=== PATIENT | female | born 1995 | race American Indian/Alaskan Native ===

== ENCOUNTER 2018-07-25 02:50 | Emergency (ER) | payer MEDICAID ==
[2018-07-25 03:22] VITALS: BMI 53.4
[2018-07-25 03:48] LABS: SQUAMOUS EPITHIAL 44 /hpf (0-5); URINE BACTERIA OCC (<OCC); URINE BILIRUBIN NEGATIVE (NEGATIVE); URINE BLOOD 2+ (NEGATIVE); URINE CLARITY Hazy (Clear); URINE COLOR Amber (YELLOW); URINE GLUCOSE (UA) NORMAL (Normal); URINE LEUKOCYTE ESTERASE 3+ Leu/uL (Negative); URINE PROTEIN 2+ mg/dL (NEGATIVE)
--- NOTE | 2018-07-25 04:23 | OBHP ---
Datetime: 07/25/2018 04:18 IP Adm Impression: , intrauterine IP Admit Plan: Discharge home Admit Comment, IP Provider: at 28+weks morbidily obese came with c/o pain courtney the abdomen 2-3 h rs ago, no ctxs, vb , lof?+fm. obhx 1 x pmh asthma med pnv all nkda latex psh de ve closed ua 3+le a/p at 28+weeks uti ivf uc macrobid x 7 days po hy f/u in clinic Pelvic Type - PN: Adequate Extremities - PN: Normal Abdomen - PN: Normal Back - PN: Normal Breast - PN: Normal Lungs - PN: Normal Heart - PN: Normal Thyroid - PN: Normal Neurologic - PN: Normal HEENT - PN: Normal General - PN: Normal FHR - Baseline A Provider: 130 Contraction Comments Provider: none EGA AdmitDate IP: 28.4 Vital Signs Provider: Reviewed; Within Normal Limits IP Chief Complaint: Maternal discomfort NICHD Variability Prov Fetus A: Moderate 6-25bpm Dilatation, Provider: 0 Effacement, Provider: 0 Station, Provider: -3 Genitourinary Exam: Normal DTRs - PN: Normal
--- NOTE | 2018-07-25 04:23 | OBDCSUM ---
Datetime: 07/25/2018 04:21 Discharged to, Provider: Home Follow up at, Provider: as sculed Follow up in weeks, Provider: clinic Discharge Comment, Provider: uc macrobid x 7 days po hy f/u in clinic Discharge Diagnosis Prov Other: 28+wee ui
[2018-07-25 11:24] VITALS: BP 127/66; PULSE 83; RESP 18
== END 2018-07-25 06:50 | disposition home or self-care (01) ==
LOC: C.EROB 02:50
DX: O23.43 Unspecified infection of urinary tract in pregnancy, third trimester (principal); Z3A.28 28 weeks gestation of pregnancy

== ENCOUNTER 2018-09-17 22:50 | Emergency (ER) | payer MEDICAID ==
[2018-09-17 23:41] VITALS: BMI 52.9
[2018-09-17] MEDS ORDERED: Lactated Ringer's 1,000 ML IV SCH (23:45)
[2018-09-18 00:15] LABS: BASO # 0.1 K/uL (0.0-0.2); BASO % 0.8 % (0.0-2.0); EOS # 0.1 K/uL (0.0-0.7); EOS % 1.7 % (0.0-4.0); HEMOGLOBIN 10.5 g/dL (11.0-16.0); LYMPH # 1.7 K/uL (1.0-4.3); LYMPH % 22.5 % (20.0-40.0); MEAN CELL VOLUME 92.8 fL (81.0-99.0); MEAN CORPUSCULAR HGB CONC 34.5 g/dL (33.0-37.0); MEAN PLATELET VOLUME 9.7 fL (7.2-11.7); MONO # 0.7 K/uL (0.0-0.8); MONO % 9.3 % (0.0-10.0); NEUT # 4.9 K/uL (1.8-7.0); NEUT % 65.7 % (50.0-75.0); NRBC % 0.1 % (0.0-2.0); RBC 3.29 Mil/uL (3.80-5.20); RED CELL DISTRIBUTION WIDTH 12.6 % (11.5-14.5); WHITE BLOOD COUNT 7.4 K/uL (4.8-10.8)
[2018-09-18 00:21] LABS: SQUAMOUS EPITHIAL 14 /hpf (0-5); URINE BACTERIA OCC (<OCC); URINE BILIRUBIN NEGATIVE (NEGATIVE); URINE BLOOD 2+ (NEGATIVE); URINE CALCIUM OXALATE CRYSTALS FEW /hpf (<OCC); URINE CLARITY Hazy (Clear); URINE COLOR Amber (YELLOW); URINE GLUCOSE (UA) NORMAL (Normal); URINE LEUKOCYTE ESTERASE 3+ Leu/uL (Negative); URINE PROTEIN 2+ mg/dL (NEGATIVE)
[2018-09-18 00:24] LABS: PROTHROMBIN TIME 11.4 SECONDS (9.7-12.2)
[2018-09-18 00:28] LABS: ALB/GLOB RATIO 1.2 (1.0-2.1); ALBUMIN 3.4 g/dL (3.5-5.0); ALT/SGPT 19 U/L (9-52); AST/SGOT 17 U/L (14-36); BLOOD UREA NITROGEN 8 mg/dL (7-17); CALCIUM 8.8 mg/dl (8.6-10.4); GFR NON-AFRICAN AMERICAN > 60
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
[2018-09-18 07:39] LABS: BASO # 0.1 K/uL (0.0-0.2); BASO % 0.8 % (0.0-2.0); EOS # 0.2 K/uL (0.0-0.7); EOS % 2.1 % (0.0-4.0); LYMPH # 1.8 K/uL (1.0-4.3); LYMPH % 23.7 % (20.0-40.0); MEAN CELL VOLUME 93.3 fL (81.0-99.0); MEAN CORPUSCULAR HEMOGLOBIN 32.3 pg (27.0-31.0); MEAN CORPUSCULAR HGB CONC 34.6 g/dL (33.0-37.0); MEAN PLATELET VOLUME 9.6 fL (7.2-11.7); MONO # 0.7 K/uL (0.0-0.8); MONO % 8.8 % (0.0-10.0); NEUT # 4.9 K/uL (1.8-7.0); NEUT % 64.6 % (50.0-75.0); RBC 3.09 Mil/uL (3.80-5.20); RED CELL DISTRIBUTION WIDTH 12.7 % (11.5-14.5); WHITE BLOOD COUNT 7.5 K/uL (4.8-10.8)
--- NOTE | 2018-09-18 10:18 | US ---
Date of service: 09/18/2018 PROCEDURE: Obstetrical ultrasound examination and limited biophysical profile HISTORY: s/p abdominal trauma, 36w 2d; morbidky obese COMPARISON: Not available TECHNIQUE: Transabdominal FINDINGS: The examination demonstrates a single live intrauterine gestation in cephalic presentation. The heart rate is 144 beats per minute. A grossly normal quantity of amniotic fluid is visualized. The amniotic fluid index is 14.84 cm. The cervix is closed and measures 3.2 cm in length. A normal anterior fundal placenta is identified. There is no evidence of placenta previa. biometry yields a gestational age of 36 weeks 4 days. The JAYDEN by ultrasound is 10/12/2018. The EFW is 2964 g. anatomy was not evaluated at this time due to the late stage of gestation. Limited biophysical profile examination yields a score of 8 out of 8. IMPRESSION: Single live intrauterine gestation of approximately 36 weeks 4 days. anatomy not evaluated. Normal amniotic fluid volume. heart rate 144. Cervix long and closed. No placenta previa. Biophysical profile score 8 out of 8. The preliminary findings for this examination were reported by [facility] at 4:13 a.m. on 09/18/2018. There is concurrence of this report with the preliminary findings.
[2018-09-18 10:31] LABS: SQUAMOUS EPITHIAL < 1 /hpf (0-5); URINE BILIRUBIN NEGATIVE (NEGATIVE); URINE BLOOD 1+ (NEGATIVE); URINE CALCIUM OXALATE CRYSTALS OCC /hpf (<OCC); URINE CLARITY Clear (Clear); URINE COLOR Yellow (YELLOW); URINE GLUCOSE (UA) NORMAL (Normal); URINE PROTEIN NEGATIVE (NEGATIVE); URINE UROBILINOGEN NORMAL mg/dL (0.2-1.0)
[2018-09-18 10:40] LABS: URINE LEUKOCYTE ESTERASE 1+ Leu/uL (Negative)
[2018-09-18] MEDS ORDERED: Lactated Ringer's 1,000 ML IV SCH (13:00)
--- NOTE | 2018-09-18 13:39 | OBDCSUM ---
Datetime: 09/18/2018 12:57 Discharged to, Provider: Home Follow up at, Provider: Maikel Disch Instr Activity: Normal activity; May be up to bathroom; May be up for meals; May Shower Disch Instr Diet: Regular Discharge Instructions, Provider: Routine instructions given Discharge Time: 09/18/2018 13:03 Follow up in weeks, Provider: today with clinic Disch Referrals: None Disch Activity Restrictions: No exercising; No lifting; Minimize stair-climbing; No sexual activity; Nothing in vagina - [place], tampons, douche Discharge Comment, Provider: 23 yo female with an IUP at 36.3 weeks Presented after a fall with direct trauma to abdomen No contractions, No LOF or VB Low Pelvic pain controlled with Motrin OB US WNL/NST Reactive/ Labs WNL UA initially with possible UTI and started on Antibiotic, Cath specimen Negative except for modera te dehydration and admits to deinking very little water. IVH given Stable and Satisfactory condition and recovery D/C home with instructions to increase po water intake, f/up with her OB and return if pain worsen s, VB, LOF or decrease FM Labor precautions reviewed with patient and verbalized understanding. Discharge Diagnosis Prov Other: S/P Abdominal Trauma Pelvic Pain Morbid Obesity
[2018-09-18 17:48] VITALS: BP 112/68; PULSE 99; RESP 20; TEMP 97.1; O2SAT 98
== END 2018-09-18 13:05 | disposition home or self-care (01) ==
LOC: C.EROB 22:50
DX: O26.93 Pregnancy related conditions, unspecified, third trimester (principal); Z3A.36 36 weeks gestation of pregnancy; W01.0XXA Fall on same level from slipping, tripping and stumbling without subsequent striking against object, initial encounter; Y92.9 Unspecified place or not applicable
CPT/HCPCS: 76815; 76818; 80053; 81001; 85025; 85384; 85610; 85730; 99283; J7120

== ENCOUNTER 2018-09-18 22:30 | Emergency (ER) | payer MEDICAID ==
[2018-09-18 23:21] VITALS: BMI 53.4
[2018-09-19] MEDS ORDERED: Lactated Ringer's 1,000 ML IV ONE (00:13)
[2018-09-19 00:36] LABS: HEMOGLOBIN 10.1 g/dL (11.0-16.0); MEAN CELL VOLUME 93.5 fL (81.0-99.0); MEAN CORPUSCULAR HGB CONC 34.3 g/dL (33.0-37.0); MEAN PLATELET VOLUME 10.1 fL (7.2-11.7); RBC 3.16 Mil/uL (3.80-5.20); RED CELL DISTRIBUTION WIDTH 12.8 % (11.5-14.5); WHITE BLOOD COUNT 7.3 K/uL (4.8-10.8)
[2018-09-19 00:57] LABS: SQUAMOUS EPITHIAL 4 /hpf (0-5); URINE BACTERIA RARE (<OCC); URINE BILIRUBIN NEGATIVE (NEGATIVE); URINE BLOOD 3+ (NEGATIVE); URINE CLARITY Hazy (Clear); URINE COLOR Yellow (YELLOW); URINE GLUCOSE (UA) NORMAL (Normal); URINE LEUKOCYTE ESTERASE 3+ Leu/uL (Negative); URINE PROTEIN 1+ mg/dL (NEGATIVE); URINE UROBILINOGEN NORMAL mg/dL (0.2-1.0)
[2018-09-19 01:02] LABS: INR 1.1; PROTHROMBIN TIME 11.6 SECONDS (9.7-12.2)
[2018-09-19 01:20] LABS: ALB/GLOB RATIO 1.2 (1.0-2.1); ALBUMIN 3.3 g/dL (3.5-5.0); ALT/SGPT 22 U/L (9-52); AST/SGOT 16 U/L (14-36); BLOOD UREA NITROGEN 6 mg/dL (7-17); GFR NON-AFRICAN AMERICAN > 60
[2018-09-19] MEDS ORDERED: Oxycodone/Acetaminophen 5/325 mg Tab PO PRN (02:02)
--- NOTE | 2018-09-19 03:14 | OBHP ---
Datetime: 09/18/2018 23:30 IP Adm Impression: , intrauterine ; No Active Labor; Intact Membranes IP Admit Plan: Observation/Evaluation Admit Comment, IP Provider: 23 yo female with an IUP at 36.4 weeks and returns to [facility] a fter she was discharged home about 12 hours ago after assessed for falling with direct trauma to her belly. This time pain c/o's of "vaginal bleeding" and brought a picture of a bloos clot of about 3-4 cms in her bed, while resting. Denied any active bleeding at time of presentation but few spots of bl ood. Also c/o of Suprapubic pain 06/21 and did not fill the prescription given earlier for Motrin. Req uesting stronger pain medication. P OB: , 2013, male, 7lb 10oz, [facility]); no complications. 2016, VTOP, 4-6 wks, office aspiration ; no complications. 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 Denies H/O STI, abnormal Pap, myomata, ovarian cysts. PMH: morbid obesity PSH: D_C NKDA Latex allergy Meds: Not taking PNV consistently. last took 1 week go. Soc Hx: denies tobacco, illicit drug or EtOH use. 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 fam Hx: Mother alive 46 y.o. HTN. Father alive 47 y.o. - unk. P.E.: morbidly obese, in NAD. Awake, alert, oriented to time, person and place. Pleasant and coope rative A/P: 36.4 weeks morbidly Obese female with c/o of vaginal bleeding and suprapubic pain ( did n ot fill her prescription for Motrin) and returning about 12 hours after she was discharged home after been evaluated for S/P fall with direct trauma to abdomen. No blood noted on vaginal exam at all and pt witnessed examining glove. CBC, CMP, UA sent NST Reactive. No uterine activity noted and VSS tachycardia on admission and probable due to maternal dehydration since she drinks little to no water and despite adequate counseling done on prior discharge home IVF Hydration ordered Continue close monitoring of FHT's and Uterine activity and proceed accordingly Pelvic Type - PN: Adequate Extremities - PN: Normal Abdomen - PN: Normal Back - PN: Normal Breast - PN: Not Done Lungs - PN: Normal Heart - PN: Normal Thyroid - PN: Normal Neurologic - PN: Normal HEENT - PN: Normal General - PN: Normal Presentation-Admit: Vertex FHR - Baseline A Provider: 170 Membranes, Provider: Intact Comments, ACOG Physical Exam: Morbid Obesity SVE closed, long, -3 and no signs of vaginal bleeding noted Gestation - Est Wks by US: 36.4 EGA AdmitDate IP: 36.3 Vital Signs Provider: Reviewed; Within Normal Limits IP Chief Complaint: Vaginal bleeding; Signs/symptoms UTI; Maternal discomfort; evaluation NICHD Variability Prov Fetus A: Moderate 6-25bpm NICHD Accel Fetus A IP Provider: 10X10 NICHD Decel Fetus A IP Provider: None Genitourinary Exam: Normal DTRs - PN: Normal
--- NOTE | 2018-09-19 03:32 | OBDCSUM ---
Datetime: 09/19/2018 03:12 Discharged to, Provider: Home Follow up at, Provider: Clinic Disch Instr Activity: Normal activity Disch Instr Diet: Regular Discharge Instructions, Provider: Routine instructions given Discharge Time: 09/19/2018 04:30 Follow up in weeks, Provider: 5-7 days Disch Activity Restrictions: No exercising; No lifting; Minimize stair-climbing; No sexual activity; Nothing in vagina - [place], tampons, douche Discharge Comment, Provider: 23 yo female with an IUP at 36.4 weeks and returns to [facility] after she was discharged home about 12 hours ago after assessed for falling with direct trauma to her belly. This time pain c/o's of "vaginal bleeding" and brought a picture of a bloos clot of about 3-4 cms in her bed, while resting. Denied any active bleeding at time of presentation but few spots of b lood. Also c/o of Suprapubic pain 06/21 and did not fill the prescription given earlier for Motrin. Re questing stronger pain medication. P OB: , 2013, male, 7lb 10oz, [facility]); no complications. 2016, VTOP, 4-6 wks, office aspiration ; no complications. 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 Denies H/O STI, abnormal Pap, myomata, ovarian cysts. PMH: morbid obesity PSH: D_C NKDA Latex allergy Meds: Not taking PNV consistently. last took 1 week go. Soc Hx: denies tobacco, illicit drug or EtOH use. 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 fam Hx: Mother alive 46 y.o. HTN. Father alive 47 y.o. - unk. P.E.: morbidly obese, in NAD. Awake, alert, oriented to time, person and place. Pleasant and coope rative A/P: 36.4 weeks morbidly Obese female with c/o of vaginal bleeding and suprapubic pain ( did n ot fill her prescription for Motrin) and returning about 12 hours after she was discharged home after been evaluated for S/P fall with direct trauma to abdomen. No blood noted on vaginal exam at all and pt witnessed examining glove. CBC, CMP WNL and only mild Anemia NST Reactive. No uterine activity noted and VSS tachycardia on admission and ressolved after IVF Hydration. UA with sigificant Hematuria and probable UTI 3 grams of Ancef given. 2 Percocet for pain also given and pain significantly improved + yeast infection detected in urine and diflucan given x 1 Stable and Satisfactory condition Will discharge home in 2-3 hours after Percocet, with instructions and Rx for Keflex 500 g po QID x 7 days and Diflucan 150 mg po in 3 and in 7 days. Advised again to increase po water intake and to fill Rx for Motrin to help with pain for 1-2 more days. Will f/up with her OB in 5-7 days or prn Discharge Diagnosis Prov Other: UTI with significant Hematuria Suprapubic pain Morbid Obesity Yeast infection Contraception after Delivery: Undecided Datetime: 09/18/2018 12:57 Discharge Comment, Provider: 23 yo female with an IUP at 36.3 weeks Presented after a fall with direct trauma to abdomen No contractions, No LOF or VB Low Pelvic pain controlled with Motrin OB US WNL/NST Reactive/ Labs WNL UA initially with possible UTI and started on Antibiotic, Cath specimen Negative except for modera te dehydration and admits to drinking very little water. IVH given Stable and Satisfactory condition and recovery D/C home with instructions to increase po water intake, f/up with her OB and return if pain worsen s, VB, LOF or decrease FM Labor precautions reviewed with patient and verbalized understanding.
[2018-09-19 14:10] VITALS: BP 121/78; PULSE 96; RESP 20; TEMP 97.6; O2SAT 98
== END 2018-09-19 09:00 | disposition home or self-care (01) ==
LOC: C.EROB 22:30
DX: O23.43 Unspecified infection of urinary tract in pregnancy, third trimester (principal); O98.813 Other maternal infectious and parasitic diseases complicating pregnancy, third trimester; B37.9 Candidiasis, unspecified; O99.213 Obesity complicating pregnancy, third trimester; R31.9 Hematuria, unspecified; R10.30 Lower abdominal pain, unspecified; Z3A.36 36 weeks gestation of pregnancy
CPT/HCPCS: 80053; 81001; 85027; 85610; 85730; 99283; J0690; J7120

== ENCOUNTER 2018-10-09 19:42 | Emergency (ER) | payer OTHER, MEDICAID ==
[2018-10-09 19:42] VITALS: BMI 53.4
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
[2018-10-09 23:12] LABS: SQUAMOUS EPITHIAL 8 /hpf (0-5); URINE BACTERIA RARE (<OCC); URINE BILIRUBIN NEGATIVE (NEGATIVE); URINE BLOOD 3+ (NEGATIVE); URINE CLARITY Hazy (Clear); URINE COLOR Yellow (YELLOW); URINE GLUCOSE (UA) NORMAL (Normal); URINE LEUKOCYTE ESTERASE 3+ Leu/uL (Negative); URINE PROTEIN 1+ mg/dL (NEGATIVE)
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
[2018-10-10 08:23] VITALS: BP 127/69; PULSE 87; RESP 20; TEMP 97.8; O2SAT 98
== END 2018-10-09 23:50 | disposition home or self-care (01) ==
LOC: C.ER 19:42 → C.EROB 19:42
DX: O26.893 Other specified pregnancy related conditions, third trimester (principal); Z3A.39 39 weeks gestation of pregnancy; S39.91XA Unspecified injury of abdomen, initial encounter; V89.2XXA Person injured in unspecified motor-vehicle accident, traffic, initial encounter

== ENCOUNTER 2018-10-11 03:09 | Inpatient (IN) | payer MEDICAID, OTHER ==
[2018-10-11 04:20] VITALS: BMI 54.5
[2018-10-11] MEDS ORDERED: Penicillin G 5 Million Unit Vial IVPB ONE ×2 (04:30→04:41)
[2018-10-11] MEDS ORDERED: Lactated Ringer's 1,000 ML IV ONE (04:30)
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
[2018-10-11 05:56] LABS: BASO # 0.1 K/uL (0.0-0.2); BASO % 0.6 % (0.0-2.0); EOS % 0.3 % (0.0-4.0); LYMPH # 1.5 K/uL (1.0-4.3); LYMPH % 10.8 % (20.0-40.0); MEAN CORPUSCULAR HEMOGLOBIN 31.8 pg (27.0-31.0); MEAN CORPUSCULAR HGB CONC 34.2 g/dL (33.0-37.0); MEAN PLATELET VOLUME 10.3 fL (7.2-11.7); MONO % 7.1 % (0.0-10.0); NEUT % 81.2 % (50.0-75.0); RBC 3.47 Mil/uL (3.80-5.20); WHITE BLOOD COUNT 13.5 K/uL (4.8-10.8)
[2018-10-11] MEDS: Lactated Ringer's 1,000 ML IV SCH ×2 (06:00→12:34)
[2018-10-11 06:09] LABS: ALB/GLOB RATIO 1.3 (1.0-2.1); ALBUMIN 3.9 g/dL (3.5-5.0); ALT/SGPT 18 U/L (9-52); AST/SGOT 20 U/L (14-36); BLOOD UREA NITROGEN 8 mg/dL (7-17); CALCIUM 9.3 mg/dl (8.6-10.4); GFR NON-AFRICAN AMERICAN > 60
[2018-10-11 06:15] LABS: SQUAMOUS EPITHIAL 21 /hpf (0-5); URINE BACTERIA OCC (<OCC); URINE BILIRUBIN NEGATIVE (NEGATIVE); URINE BLOOD 3+ (NEGATIVE); URINE CLARITY Turbid (Clear); URINE COLOR Amber (YELLOW); URINE GLUCOSE (UA) NORMAL (Normal); URINE LEUKOCYTE ESTERASE 3+ Leu/uL (Negative); URINE PROTEIN 2+ mg/dL (NEGATIVE); URINE UROBILINOGEN NORMAL mg/dL (0.2-1.0)
[2018-10-11 06:25] LABS: HEPATITIS B SURFACE AG Negative (NEGATIVE)
[2018-10-11 06:30] LABS: HEPATITIS A IGM NEGATIVE (NEGATIVE); HEPATITIS B CORE AB NEGATIVE (NEGATIVE)
[2018-10-11] MEDS ORDERED: Bupivacaine HCl/FentaNYL Cit 100 ML EPI ONE (06:39)
[2018-10-11 06:42] LABS: HEPATITIS C ANTIBODY NEGATIVE (NEGATIVE)
[2018-10-11] MEDS ORDERED: Oxytocin 30 UNIT 30 UNITS/500 ML BAG IV SCH ×2 (09:30→13:00)
--- NOTE | 2018-10-11 12:21 | OBPN ---
Datetime: 10/11/2018 09:30 IP Progress Impression Other: Morbidly Obese IP Progress Impression: Normal progression of labor; Reassuring heart rate IP Informed Consent Obtain: Vaginal Delivery IP Procedures: Artificial ROM; Intrauterine Pressure Catheter; Scalp Electrode; Epidural Place ment IP Progress Plan: Continue present management; Augmentation Membranes, Provider: Ruptured Amniotic Fluid Color, Provider: Meconium, Heavy Contraction Comments Provider: 3-5 FHR - Baseline A Provider: 150 Gestation - Est Wks by US: 39.5 Presentation-Admit: Vertex IP Progress Note Comment: Pr seen and examined FHT's reassuring Contractions Q 3-5 minutes AROM performed with Thick Meconium fluid Epidural placed after several attempts and pt more comfortable Pitocin started for Augmentation of labor Anticipate a vaginal delivery Will request Newspaper Vendor in attendance for delivery NICHD Accel Fetus A IP Provider: 10X10 FHR Category Provider Fetus A: Category I NICHD Variability Prov Fetus A: Moderate 6-25bpm Dilatation, Provider: 7 Effacement, Provider: 100 Station, Provider: 0 NICHD Decel Fetus A IP Provider: None (Annotations: Data stored by CPN on behalf of user) Datetime: 10/11/2018 04:27 Vital Signs Provider: Reviewed
[2018-10-11] MEDS ORDERED: Oxytocin 10 Units/ml Inj ONE (13:01)
[2018-10-11] MEDS ORDERED: Oxycodone/Acetaminophen 5/325 mg Tab PO PRN (13:05)
[2018-10-11] MEDS ORDERED: Benzocaine/Menthol 20%-0.5% Topical Spray (60 ml) TOP PRN (13:05)
[2018-10-11] MEDS ORDERED: Oxytocin 30 UNIT 30 UNITS/500 ML BAG IV ONE (13:06)
--- NOTE | 2018-10-11 15:35 | OBDS ---
DELIVERY PERSONNEL Delivery Doctor: Dr. Shah Sleeve Fixer: Marcelina Herrera RN Anesthesiologist: Zeenat Cordon MD MATERNAL INFORMATION Delivery Anesthesia: Epidural Medications in Delivery: Pitocin 30 MU in 500 mls of NS, Hemabate 250 mcg im Estimated Blood Loss (ml): 400 Maternal Complications: Other Other Maternal Complications: morbidly obese RN Comments: via intact perinium to a 39.5 week IUP. viable baby boy with 9-9 Provider Comments: Precipitous vaginal delivery of a viable Male from CELSO position and with a tight CNC x 1 that was reduced and transected after she pushed the baby out uncontrolable. Pediatri khanh in attendance. Apgars 9_9 and BW 6lbs 7oz. Placenta, cord blood and cord Ph sent Mild uterine atony that ressolved with increase Pitocin infusion and one dose of Methergine IM EBL 400 mls Pt and both tolerated the procedure well and remained in the room in Stable and Satisfacto ry condition. LABOR SUMMARY EDC: 10/13/2018 00:00 No. Babies in Womb: 1 Attempted: No Labor Anesthesia: Epidural LABOR INFORMATION Reason for Induction: Other Reason for Induction Other: maternal obesity Onset of Labor: 10/10/2018 21:00 Complete Dilatation: 10/11/2018 10:30 Oxytocin: Augmentation Group B Beta Strep: Result Unknown Antibiotics # of Doses: 3 Antibiotics Time of Last Dose: 1233 Steroids Given: None Reason Steroids Not Administered: Not Applicable MEMBRANES Membranes Rupture Method: Artificial Rupture of Membranes: 10/11/2018 09:02 Length of Rupture (hrs): 3.82 Amniotic Fluid Color: Heavy Meconium Amniotic Fluid Amount: Small Amniotic Fluid Odor: Normal STAGES OF LABOR Stage 1 hrs: 13 Stage 1 min: 30 Stage 2 hrs: 2 Stage 2 min: 21 Stage 3 hrs: 0 Stage 3 min: 9 Total Time in Labor hrs: 16 Total Time in Labor min: 0 VAGINAL DELIVERY Episiotomy: None Laceration Extension: N/A Laceration Type: None Initial Vag Sponge Count: 10 Final Vag Sponge Count: 10 Initial Vag Sharps Count: 0 Final Vag Sharps Count: 0 Sponge Count Correct: Yes; Vaginal Sweep Performed Sharps Count Correct: Yes BABY A INFORMATION Delivery Date/Time: 10/11/2018 12:51 Method of Delivery: Vaginal Born in Route : No : N/A Forceps: N/A Vacuum Extraction: N/A Shoulder Dystocia : No SHOULDER DYSTOCIA BABY A Delivery Date/Time: 10/11/2018 12:51 PRESENTATION/POSITION BABY A Presentation: Cephalic Cephalic Presentation: Vertex Vertex Position: Right Occipital Anterior Breech Presentation: N/A PLACENTA INFORMATION BABY A Placenta Delivery Time : 10/11/2018 13:00 Placenta Method of Delivery: Expressed Placenta Status: Delivered INFORMATION BABY A Gestational Age at Delivery: 39.5 Gestational Status: Term Infant Outcome : Liveborn Condition : Stable Infant Sex: Male IDENTIFICATION/MEDS BABY A ID Band Number: [id number] ID Band Location: Left Leg; Left Arm Sensor Applied: Yes Sensor Number: [id number] Sensor Location : Cord Clamp Vitamin K Given : Aquamephyton 1 mg IM; Left Thigh Erythromycin Given: Given Both Eyes WEIGHT/LENGTH BABY A Infant Birthweight (gms): 2935 Infant Weight (lb): 6 Infant Weight (oz): 7 Infant Length Inches: 19.00 Infant Length cms: 48.3 CORD INFORMATION BABY A No. Cord Vessels: 3 Nuchal Cord : Around Neck x1, Tight Infant Cord pH Baby Arterial: 7.28 Cord pH Baby Venous: 7.35 Cord Blood Taken: Yes Infant Suction: Mouth; Nose
[2018-10-11 15:58] LABS: RAPID PLASMA REAGIN NONREACTIVE (NONREACTIVE)
[2018-10-11] MEDS ORDERED: Oxycodone/Acetaminophen 5/325 mg Tab ONE (16:40)
[2018-10-11] MEDS: Oxycodone/Acetaminophen 5/325 mg Tab PO PRN ×2 (16:40→20:45)
[2018-10-12 08:14] LABS: BASO # 0.1 K/uL (0.0-0.2); BASO % 0.8 % (0.0-2.0); EOS # 0.1 K/uL (0.0-0.7); EOS % 0.7 % (0.0-4.0); HEMOGLOBIN 9.7 g/dL (11.0-16.0); LYMPH # 2.2 K/uL (1.0-4.3); LYMPH % 21.2 % (20.0-40.0); MEAN CELL VOLUME 93.4 fL (81.0-99.0); MEAN CORPUSCULAR HGB CONC 34.2 g/dL (33.0-37.0); MEAN PLATELET VOLUME 10.5 fL (7.2-11.7); MONO # 0.8 K/uL (0.0-0.8); MONO % 8.2 % (0.0-10.0); NEUT % 69.1 % (50.0-75.0); RBC 3.03 Mil/uL (3.80-5.20); RED CELL DISTRIBUTION WIDTH 13.1 % (11.5-14.5); WHITE BLOOD COUNT 10.2 K/uL (4.8-10.8)
--- NOTE | 2018-10-12 08:35 | OBPPN ---
Datetime: 10/12/2018 08:31 PP Pain Prov: Within normal limits PP Abdomen/Uterus Prov: Normal PP Lochia Prov: Normal PP Vulva/Perineum Prov: Normal PP Impression Prov: Normal progression PP Plan Prov: Continue present management PP Progress Note Prov: A/P: 23yo s/p NSD PPD#1 VSS- PT doing well Encourage ambulation Bottle/ morbid obesity lochia WNL Continue care IP PP Procedures: None Vital Signs Provider Details PP: Abdomen obese- unable to appreciate fundus due to body habitus
[2018-10-12] MEDS: Multiple Vitamins Tab PO SCH (09:46)
[2018-10-12] MEDS: Oxycodone/Acetaminophen 5/325 mg Tab PO PRN ×2 (09:48→17:16)
[2018-10-12] MEDS ORDERED: Influenza Vaccine 60 MCG/0.5 ML SYR (3 yr & up) IM ONE (12:41)
[2018-10-13 00:23] VITALS: O2SAT 98
[2018-10-13] MEDS: Oxycodone/Acetaminophen 5/325 mg Tab PO PRN (01:25)
--- NOTE | 2018-10-13 08:16 | OBDCSUM ---
Datetime: 10/13/2018 08:15 Discharged to, Provider: Home Follow up at, Provider: clinic Disch Instr Activity: Normal activity Disch Instr Diet: Regular Discharge Instructions, Provider: Routine instructions given Discharge Diagnosis, Provider: Term Delivered Follow up in weeks, Provider: 6 weeks Datetime: 10/13/2018 07:44 Discharged to, Provider: Home Follow up at, Provider: [facility] Disch Instr Activity: Normal activity; May Shower Disch Instr Diet: Regular Discharge Diet restrict Prov: none Discharge Time: 10/13/2018 14:00 Follow up in weeks, Provider: 6 weeks Disch Referrals: None Disch Activity Restrictions: No exercising; Nothing in vagina - [place], tampons, douche
--- NOTE | 2018-10-13 08:17 | OBPPN ---
Datetime: 10/13/2018 08:12 PP Pain Prov: Within normal limits PP Lochia Prov: Normal PP C/S Incision Prov: Not Applicable PP Progress Prov: Abnormal PP Impression Prov: Normal progression; difficulties PP Plan Prov: consult; Discharge PP Progress Note Prov: A/P: s/p PPD #2 - stable, afebrile - consult - morbid obesity - d/c home
[2018-10-13 09:12] VITALS: BP 120/78; PULSE 72; RESP 18; TEMP 97.9
[2018-10-13] MEDS: Multiple Vitamins Tab PO SCH (09:19)
== END 2018-10-13 15:09 | disposition home or self-care (01) | DRG 372 ==
LOC: C.EROB 03:09 → C.4D 04:03 → C.4M 17:45
PROVIDERS: ADMIT Obstetrics & Gynecology; ATTEND Obstetrics & Gynecology
PROC: 10E0XZZ Delivery of Products of Conception, External Approach (ICD-10-PCS; principal; 2018-10-11)
PROC: 10907ZC Drainage of Amniotic Fluid, Therapeutic from Products of Conception, Via Natural or Artificial Opening (ICD-10-PCS; 2018-10-11)
DX: O99.214 Obesity complicating childbirth (principal); O98.42 Viral hepatitis complicating childbirth; B18.1 Chronic viral hepatitis B without delta-agent; O69.1XX0 Labor and delivery complicated by cord around neck, with compression, not applicable or unspecified; O77.0 Labor and delivery complicated by meconium in amniotic fluid; O62.3 Precipitate labor; O62.2 Other uterine inertia; O99.344 Other mental disorders complicating childbirth; F43.10 Post-traumatic stress disorder, unspecified; E66.01 Morbid (severe) obesity due to excess calories; Q99.2 Fragile X chromosome; Z91.040 Latex allergy status; Z3A.39 39 weeks gestation of pregnancy; Z37.0 Single live birth